=== PATIENT | female | born 1930 | race Caucasian/White ===

== ENCOUNTER 2016-08-21 19:09 | Inpatient (IN) | payer MEDICARE, OTHER ==
[2016-08-21 20:42] LABS: HEMATOCRIT 41.5 % (35.0-45.0)
[2016-08-21 20:45] LABS: HEMOGLOBIN 14.5 gm/dL (11.7-16.1); MEAN CELL VOLUME 89.6 fl (81-100); MEAN CORPUSCULAR HEMOGLOBIN 31.2 pg (27.0-31.0); MEAN CORPUSCULAR HGB CONC 34.9 pg (28.0-36.0); PLATELET COUNT 200 Th/cmm (150-400); RED BLOOD COUNT 4.63 Mil/cmm (3.80-5.20); RED CELL DISTRIBUTION WIDTH 12.7 % (11.5-20.0)
[2016-08-21] MEDS ORDERED: Sodium Chloride 0.9% 1,000 ML IV SCH ×2 (20:45)
[2016-08-21 20:55] LABS: WHITE BLOOD COUNT 16.8 Th/cmm (4.8-10.8)
[2016-08-21 20:59] LABS: ALB/GLOB RATIO 0.9 (1.0-1.8); ALKALINE PHOSPHATASE 60 U/L (34-104); BILIRUBIN,TOTAL 0.5 mg/dL (0.3-1.0); BUN - UREA NITROGEN 13 mg/dL (7-25); BUN/CREATININE RATIO 18.6; CALCIUM SERUM 9.6 mg/dL (8.6-10.3); CARBON DIOXIDE 21.7 mEq/L (21.0-31.0); CHLORIDE 103 mEq/L (98-107); CREATININE - SERUM 0.7 mg/dL (0.6-1.2); GLUCOSE 115 mg/dL (70-105); POTASSIUM SERUM 3.7 mEq/L (3.5-5.1); SGOT 14 U/L (13-39); SGPT/ALT 6 U/L (7-52); SODIUM SERUM 135 mEq/L (136-145)
[2016-08-21] MEDS ORDERED: Levofloxacin 500mg/100mL 500 MG/100 ML BAG IV ONE ×2 (21:47→21:49)
[2016-08-21 22:28] LABS: TOTAL CELLS COUNTED 100
[2016-08-21 22:29] LABS: BAND NEUTROPHILE 6 % (0-10); BASOPHIL 0 % (0-3); EOSINOPHIL 0 % (0-5); NEUTROPHILS 81 % (40-80)
[2016-08-21 22:30] LABS: PLATELET ESTIMATE ADEQUATE (NORMAL); PLATELET MORPHOLOGY NORMAL (NORMAL)
[2016-08-21 22:46] LABS: URINE BILIRUBIN NEGATIVE (NEGATIVE); URINE BLOOD MODERATE (NEGATIVE); URINE COLOR YELLOW; URINE GLUCOSE (UA) NEGATIVE (NEGATIVE); URINE KETONE 40 mg/dL (NEGATIVE)
[2016-08-21 22:47] LABS: URINE PROTEIN NEGATIVE (NEGATIVE); URINE UROBILINOGEN 0.2 E.U./dL (0.2 - 1.0); URINE WBC >100 /hpf (0-5)
[2016-08-21 22:48] LABS: URINE BACTERIA MODERATE /hpf (NONE SEEN); URINE EPITHELIAL CELLS MODERATE /lpf (FEW)
--- NOTE | 2016-08-21 23:19 | ED Physician Chart ---
Chief Complaint/HPI - Patient Information Date Seen:: 08/21/16 Time Seen:: 21:40 Chief Complaint:: fever, cough History of Present Illness:: location: general quality: fever, cough severity: moderate duration: two days context: SNF patient with fever, mild cough, generalized weakness, no pain complaint. sent to ER by PCP for medical screening exam. on arrival pt is awake, alert, with tachycardia. heart rate 105-110. no vomiting, no diarrhea, no rash. no CP, no SOB. mod factors: none assoc s/s: none hx from medic Allergies:: Allergies Allergy/AdvReac Type Severity Reaction Status Date / Time No Known Allergies Allergy Verified 01/27/16 23:25 Vitals:: Vital Signs - 8 hr 08/21/16 08/21/16 08/21/16 19:29 20:59 21:35 Temp 102.1 F 101.0 F HR 99 101 107 RR 18 18 18 BP 126/73 106/72 110/74 O2 Sat % 99 Historian:: EMS Review:: Nurse's Note Reviewed, EMS run form Reviewed Review of Systems - Review of Systems General/Constitutional: Fever, Chills, No edema Skin: No rash Neck: No stiffness Cardio Vascular: No edema Pulmonary: Cough, No wheezing GI: No vomiting, No diarrhea Neurological: No seizure Past Medical History - Past Medical History Past Medical History: HTN, PUD/GERD, Other (anemia, osteoporosis, anxiety) Family History: None Social History: Non Smoker, No Alcohol, No Drug Use, Single, Care Facility Surgical History: None Psychiatricy History: Depression Medication: Reviewed Family Medical History - Family Member Mother History Unknown: Yes Physical Exam - Physical Examination General/Constitutional: Awake, Well-developed, well-nourished, Alert, No distress, GCS 15, Non-toxic appearing Head: Atraumatic Eyes: Lids, conjuctiva normal, PERRL, EOMI Skin: Nl inspection, No rash, No skin lesions, No ecchymosis, No lymphadenopathy ENMT: External ears, nose nl, Nasal exam nl, Lips, teeth, gums nl Neck: Nontender Respiratory: Nl effort/Exclusion, Clear to Auscultation, No Wheeze/Rhonchi/Rales Cardio Vascular: RRR, No murmur, gallop, rubs, NL S1 S2 GI: No tenderness/rebounding/guarding, Normal BS's, Nondistended : No CVA tenderness Extremities: No tenderness or effusion, Full ROM, normal strength in all extremities, No edema, Normal digits & nails Neuro/Psych: Normal sensory exam, Normal motor strength, Mood normal, Normal gait, No focal deficits Misc: normal gait, Normal back, No paraspinal tenderness Labs/Radiology/EKG Results - Lab Results Results: Laboratory Tests 08/21/16 08/21/16 08/21/16 20:10 20:10 20:10 WBC 16.8 H D RBC 4.63 Hgb 14.5 Hct 41.5 MCV 89.6 MCH 31.2 H MCHC Differential 34.9 RDW 12.7 Plt Count 200 MPV 9.0 Neutrophils % AUTOMOBILE LOCATOR Band Neutrophils % 6 Lymphocytes % AUTOMOBILE LOCATOR Monocytes % AUTOMOBILE LOCATOR Neutrophils (Manual) 81 H Lymphocytes 8 L Monocytes 5 Eosinophils 0 Basophils 0 Platelet Estimate ADEQUATE Platelet Morphology NORMAL RBC Morph Micro Appear NORMAL Sodium 135 L Potassium 3.7 Chloride 103 Carbon Dioxide 21.7 Anion Gap 14.0 BUN 13 Creatinine 0.7 Est GFR ( Amer) TNP Est GFR (Non-Af Amer) TNP BUN/Creatinine Ratio 18.6 Glucose 115 H Whole Bld Lactic Acid 1.12 Calcium 9.6 Total Bilirubin 0.5 AST 14 ALT 6 L Alkaline Phosphatase 60 Total Protein 7.9 Albumin 3.8 Globulin 4.1 Albumin/Globulin Ratio 0.9 L Urine Source Urine Color Urine Clarity Urine pH Ur Specific [place] Urine Protein Urine Glucose (UA) Urine Ketones Urine Blood Urine Nitrate Urine Bilirubin Urine Urobilinogen Ur Leukocyte Esterase Urine RBC Urine WBC Ur Epithelial Cells Urine Bacteria 08/21/16 20:55 WBC RBC Hgb Hct MCV MCH MCHC Differential RDW Plt Count MPV Neutrophils % Band Neutrophils % Lymphocytes % Monocytes % Neutrophils (Manual) Lymphocytes Monocytes Eosinophils Basophils Platelet Estimate Platelet Morphology RBC Morph Micro Appear Sodium Potassium Chloride Carbon Dioxide Anion Gap BUN Creatinine Est GFR ( Amer) Est GFR (Non-Af Amer) BUN/Creatinine Ratio Glucose Whole Bld Lactic Acid Calcium Total Bilirubin AST ALT Alkaline Phosphatase Total Protein Albumin Globulin Albumin/Globulin Ratio Urine Source CATH Urine Color YELLOW Urine Clarity HAZY Urine pH 7.0 Ur Specific [place] 1.020 Urine Protein NEGATIVE Urine Glucose (UA) NEGATIVE Urine Ketones 40 H Urine Blood MODERATE H Urine Nitrate POSITIVE H Urine Bilirubin NEGATIVE Urine Urobilinogen 0.2 Ur Leukocyte Esterase MODERATE H Urine RBC 2-5 Urine WBC >100 H Ur Epithelial Cells MODERATE Urine Bacteria MODERATE - EKG Interpretations Comments:: EKG nsr [address] depression, lateral leads ED Septic Shock - . Is Septic Shock (SBP<90, OR Lactate>4 mmol\L) present?: No - <6hrs of presentation: Vital Signs: Vital Signs - 8 hr 08/21/16 08/21/16 08/21/16 19:29 20:59 21:35 Temp 102.1 F 101.0 F HR 99 101 107 RR 18 18 18 BP 126/73 106/72 110/74 O2 Sat % 99 Reassessment (Disposition) - Reassessment Reassessment:: MDM: pt with pulmonary findings of reduced breath sounds left lower lobe, mild tachycardia, normal lactate. also with UTI findings and elevated WBC. consistent with early sepsis even though lactate normal and blood pressure systolic 107. improved after IV fluid bolus. ER course: initially with fever and mild relative tachycardia. pt given tylenol and IV fluid bolus with improvement in heart rate. pt given IV fluid bolus as if near sepsis even though she does not meet standard criteria. pt improved after bolus. currently pt stable, comfortable, normal vital signs with maintenance IV fluids running. pt has been given IV antibiotics for pneumonia and UTI. Reassessment Condition:: Improved - Diagnosis Diagnosis:: left lower lobe pneumonia urinary tract infection - Patient Disposition Discharge/Transfer:: Acute Care w/in this hosp Admitted to:: Med/Surg Admitting Medical Physician:: Katherine Zhao Time:: 23:35 Condition at Disposition:: Stable, Improved
[2016-08-21] MEDS ORDERED: Magnesium Hydroxide (MOM) 30 mL UDC PO PRN (23:55)
[2016-08-22] MEDS: D5-0.45NS 1,000 ML IV SCH ×2 (00:57→14:20)
[2016-08-22 02:33] VITALS: BP 110/55
[2016-08-22 07:59] LABS: MEAN CORPUSCULAR HEMOGLOBIN 31.7 pg (27.0-31.0); MEAN CORPUSCULAR HGB CONC 34.8 pg (28.0-36.0); MEAN PLATELET VOLUME 8.7 fl; PLATELET COUNT 172 Th/cmm (150-400); RED BLOOD COUNT 3.82 Mil/cmm (3.80-5.20); RED CELL DISTRIBUTION WIDTH 12.6 % (11.5-20.0)
[2016-08-22 08:07] LABS: ALKALINE PHOSPHATASE 45 U/L (34-104); ANION GAP 4.5 (7.0-16.0); BILIRUBIN,TOTAL 0.4 mg/dL (0.3-1.0); BUN - UREA NITROGEN 9 mg/dL (7-25); CALCIUM SERUM 8.7 mg/dL (8.6-10.3); CARBON DIOXIDE 24.6 mEq/L (21.0-31.0); CHLORIDE 110 mEq/L (98-107); CHOLESTEROL 98 mg/dL (<200); CREATININE - SERUM 0.6 mg/dL (0.6-1.2); GLUCOSE 122 mg/dL (70-105); POTASSIUM SERUM 3.1 mEq/L (3.5-5.1); SGOT 17 U/L (13-39); SGPT/ALT 7 U/L (7-52); SODIUM SERUM 136 mEq/L (136-145); TRIGLYCERIDES 36 mg/dL (<150)
[2016-08-22 08:45] LABS: WHITE BLOOD COUNT 12.5 Th/cmm (4.8-10.8)
[2016-08-22 08:46] LABS: HEMATOCRIT 34.7 % (35.0-45.0); HEMOGLOBIN 12.1 gm/dL (11.7-16.1)
[2016-08-22] MEDS: Multivitamin w/ Minerals Tab PO SCH (09:15)
[2016-08-22] MEDS: Pantoprazole 40 mg EC Tab PO SCH (09:15)
[2016-08-22] MEDS: Calcium Carb/Vit D 500 mg/200 U Tab PO SCH ×2 (09:15→17:39)
[2016-08-22] MEDS: Ferrous Sulfate 325 MG TAB PO SCH (09:15)
--- NOTE | 2016-08-22 09:54 | Diagnostic Imaging Report ---
CHEST X-RAY: AP view INDICATION: Cough COMPARISON: Chest x-ray 01/27/2016 FINDINGS: Chronic lung changes are seen with increased interstitial lung markings most pronounced within the lung bases. No focal consolidation pleural effusions. Heart size is normal. Degenerative changes of the spine are noted. IMPRESSION: Chronic lung changes with increased lung markings most pronounced within the lung bases. Note that infiltrate of the right lung base cannot be excluded. Clinical correlation is recommended.
[2016-08-22] MEDS ORDERED: Pneumococcal Vaccine 0.5 mL Vial IM ONE (10:00)
[2016-08-22 10:29] LABS: BAND NEUTROPHILE 10 % (0-10); EOSINOPHIL 1 % (0-5); NEUTROPHILS 76 % (40-80); PLATELET ESTIMATE ADEQUATE (NORMAL); PLATELET MORPHOLOGY NORMAL (NORMAL); TOTAL CELLS COUNTED 100
[2016-08-22] MEDS: KCL 20mEq/100mL Premix 20 MEQ/100 ML PIGGYBACK IV SCH ×2 (15:48→18:20)
[2016-08-22] MEDS: Levofloxacin 500mg/100mL 500 MG/100 ML BAG IV SCH (17:39)
--- NOTE | 2016-08-22 20:37 | History & Physical ---
HISTORY OF PRESENT ILLNESS: A female with history of generalized weakness, fever, cough, came from the long-term and the patient was admitted for tachycardia, infection and sepsis. ALLERGIES: The patient is allergic to no medications. REVIEW OF SYSTEMS: Noted earlier fever, chills and cough. PAST MEDICAL HISTORY: History of hypertension, peptic ulcer disease, anemia, osteoporosis, anxiety. FAMILY HISTORY: Unremarkable. PHYSICAL EXAMINATION: GENERAL: Well-developed, well-nourished female, not in acute distress. VITAL SIGNS: Stable. HEAD: Head is normal. LUNGS: Bilateral rhonchi. CARDIOVASCULAR SYSTEM: S1, S2 heard. ABDOMEN: Soft. Bowel sounds are heard. CENTRAL NERVOUS SYSTEM: Grossly normal. LABORATORY DATA: White count was 16.8, hemoglobin 14.5 indicating infection and EKG showed sinus tachycardia, minimal ST depression in the lateral leads. DIAGNOSES: Left lower lobe pneumonia, urinary tract infection, leukocytosis early sepsis. Rule out sepsis, history of osteoporosis, history of anxiety, history of peptic ulcer disease, history of hypertension. PLAN: The patient is being admitted. I will go ahead and call ____. I will give antibiotics and we will also call Dr. Gabino Hyde for ID consult. JOB# [id number]
--- NOTE | 2016-08-22 22:51 | Admit Criteria Form ---
Admit Criteria Forms - Admit Criteria Diagnosis: PNEUMONIA, COMMUNITY ACQUIRED Clinical Indications for Admission to Inpatient Care ( Place 'X' for any and all applicable criteria): Admission is indicated for ANY ONE of the following (1)(2)(3): [ ]I. Hypoxemia indicated by ANY ONE of the following: [ ]a) Oxygen saturation less than 90% while breathing room air [ ]b) PO2 less than 60 mm Hg (8.0 kPa) while breathing room air [ ]c) Chronic lung disease with significant deterioration from baseline oxygenation [ ]II. Appropriate diagnostic testing and treatment unavailable in outpatient or recovery facility (eg,testing or infection control measures unavailable(10) [ ]III. Moderate-risk or high-risk category patients (Pneumonia Severity Index (PSI) class IV or V, or CURB-65 score of 3 or greater). [ ]IV. Outpatient treatment failure as indicated by ANY ONE of the following(9) : [ ]a) Failure to respond to antibiotic (eg, resistant organism) [ ]b) Clinically significant adverse effects from medication (eg, vomiting) [ ]c) Complications of pneumonia (eg, empyema, bacteremia) [ ]d) Significant worsening of comorbid cond necessitating inpatient care (eg, chronic heart failure) [X ]V. Intermediate-risk category patients (eg, PSI class III or CURB-65 score 2) who do not improve with initial therapy and observation. [ ]. Immunocompromised patients (eg, AIDS, chronic steroid use) at moderate or high risk based on clinical evaluation. [ ]VII. Complicated pleural effusions (eg, exudative, loculated) [ ]VIII.Hemodynamic instability [ ] IX. Altered mental status that is severe or persistent. [ ]X. Dehydration that is severe or persistent. [ ]XI. Bacteremia [ ]XII. Respiratory finding (eg. tachypnea) that do not respond to outpatient or observation care treatment Extended stay beyond goal length of stay may be needed for (20) [ ]a) Unclear diagnosis [ ]b) Pleural disease [ ]c) Severe pneumonia or treatment failure (25 [ ]d) Respiratory failure (anticipate invasive or noninvasive ventilatory support) [ ]e) Abnormal serum electrolytes (serum Na concentration less than 135 mEq/L (mmol/L) (32)(33) [ ]f) Clinically significant comorbid illness (eg, heart failure, atrial fibrillation with rapid heart rate, alcohol withdrawal, renal insufficiency)(34)(35) [ ]g) Comorbid acute exacerbation of COPD(36) [ ]h) Concomitant diagnosis of malignancy that may be associated with malnutrition, immunologic impairment, or bronchial obstruction. [ ]i) Concomitant altered mental status [ ]j) Culture-identified Gram-negative or antibiotic-resistant organism (eg, Pseudomonas, methicillin-resistant Staphylococcus aureus)(30) [ ]k) Healthcare-associated pneumonia The original [facility] content created by [employer] has been revised. The portions of the content which have been revised are identified through the use of italic text or in bold, and [facility] has neither reviewed nor approved the modified material. All other unmodified content is copyright [facility]. Please see references footnoted in the original [facility] edition 2016 Admit Criteria Met?: Yes
[2016-08-23] MEDS: Ferrous Sulfate 325 MG TAB PO SCH (08:26)
[2016-08-23] MEDS: Calcium Carb/Vit D 500 mg/200 U Tab PO SCH ×2 (08:26→16:19)
[2016-08-23] MEDS: Pantoprazole 40 mg EC Tab PO SCH (08:26)
[2016-08-23] MEDS: Multivitamin w/ Minerals Tab PO SCH (08:26)
[2016-08-23] MEDS: D5-0.45NS 1,000 ML IV SCH ×2 (08:47→23:48)
--- NOTE | 2016-08-23 09:59 | General Progress Note ---
Objective - Results Result Diagrams: 08/22/16 07:35 08/22/16 07:35 Recent Labs: Laboratory Last Values WBC 12.5 Th/cmm (4.8-10.8) H D 08/22/16 07:35 RBC 3.82 Mil/cmm (3.80-5.20) 08/22/16 07:35 Hgb 12.1 gm/dL (11.7-16.1) D 08/22/16 07:35 Hct 34.7 % (35.0-45.0) L D 08/22/16 07:35 MCV 91.0 fl (81-100) 08/22/16 07:35 MCH 31.7 pg (27.0-31.0) H 08/22/16 07:35 MCHC Differential 34.8 pg (28.0-36.0) 08/22/16 07:35 RDW 12.6 % (11.5-20.0) 08/22/16 07:35 Plt Count 172 Th/cmm (150-400) 08/22/16 07:35 MPV 8.7 fl 08/22/16 07:35 Neutrophils % COMPUTATIONAL GENETICIST 08/21/16 20:10 Band Neutrophils % 10 % (0-10) 08/22/16 07:35 Lymphocytes % COMPUTATIONAL GENETICIST 08/21/16 20:10 Monocytes % COMPUTATIONAL GENETICIST 08/21/16 20:10 Neutrophils (Manual) 76 % (40-80) 08/22/16 07:35 Lymphocytes 9 % (20-50) L 08/22/16 07:35 Monocytes 4 % (2-10) 08/22/16 07:35 Eosinophils 1 % (0-5) 08/22/16 07:35 Basophils 0 % (0-3) 08/21/16 20:10 Platelet Estimate ADEQUATE (NORMAL) 08/22/16 07:35 Platelet Morphology NORMAL (NORMAL) 08/22/16 07:35 RBC Morph Micro Appear NORMAL (NORMAL) 08/22/16 07:35 Sodium 136 mEq/L (136-145) 08/22/16 07:35 Potassium 3.1 mEq/L (3.5-5.1) L 08/22/16 07:35 Chloride 110 mEq/L (98-107) H 08/22/16 07:35 Carbon Dioxide 24.6 mEq/L (21.0-31.0) 08/22/16 07:35 Anion Gap 4.5 (7.0-16.0) L 08/22/16 07:35 BUN 9 mg/dL (7-25) 08/22/16 07:35 Creatinine 0.6 mg/dL (0.6-1.2) 08/22/16 07:35 Est GFR ( Amer) TNP 08/22/16 07:35 Est GFR (Non-Af Amer) TNP 08/22/16 07:35 BUN/Creatinine Ratio 15.0 08/22/16 07:35 Glucose 122 mg/dL (70-105) H 08/22/16 07:35 Whole Bld Lactic Acid 1.12 mmol/L (0.60-2.00) 08/21/16 20:10 Calcium 8.7 mg/dL (8.6-10.3) 08/22/16 07:35 Total Bilirubin 0.4 mg/dL (0.3-1.0) 08/22/16 07:35 AST 17 U/L (13-39) 08/22/16 07:35 ALT 7 U/L (7-52) 08/22/16 07:35 Alkaline Phosphatase 45 U/L (34-104) 08/22/16 07:35 Total Protein 6.2 gm/dL (6.0-8.3) 08/22/16 07:35 Albumin 3.1 gm/dL (3.7-5.3) L 08/22/16 07:35 Globulin 3.1 gm/dL 08/22/16 07:35 Albumin/Globulin Ratio 1.0 (1.0-1.8) 08/22/16 07:35 Triglycerides 36 mg/dL (<150) 08/22/16 07:35 Cholesterol 98 mg/dL (<200) 08/22/16 07:35 LDL Cholesterol Direct 45 mg/dL (75-193) L 08/22/16 07:35 HDL Cholesterol 44 mg/dL (23-92) 08/22/16 07:35 TSH 2.05 uIU/ml (0.34-5.60) 08/22/16 07:35 Urine Source CATH 08/21/16 20:55 Urine Color YELLOW 08/21/16 20:55 Urine Clarity HAZY (CLEAR) 08/21/16 20:55 Urine pH 7.0 08/21/16 20:55 Ur Specific [place] 1.020 (1.005-1.030) 08/21/16 20:55 Urine Protein NEGATIVE mg/dL (NEGATIVE) 08/21/16 20:55 Urine Glucose (UA) NEGATIVE mg/dL (NEGATIVE) 08/21/16 20:55 Urine Ketones 40 mg/dL (NEGATIVE) H 08/21/16 20:55 Urine Blood MODERATE (NEGATIVE) H 08/21/16 20:55 Urine Nitrate POSITIVE (NEGATIVE) H 08/21/16 20:55 Urine Bilirubin NEGATIVE (NEGATIVE) 08/21/16 20:55 Urine Urobilinogen 0.2 E.U./dL (0.2 - 1.0) 08/21/16 20:55 Ur Leukocyte Esterase MODERATE (NEGATIVE) H 08/21/16 20:55 Urine RBC 2-5 /hpf (0-5) 08/21/16 20:55 Urine WBC >100 /hpf (0-5) H 08/21/16 20:55 Ur Epithelial Cells MODERATE /lpf (FEW) 08/21/16 20:55 Urine Bacteria MODERATE /hpf (NONE SEEN) 08/21/16 20:55 - Physical Exam Vitals and I&O: Vital Signs Temp 99 F 08/23/16 04:00 Pulse 86 08/23/16 08:26 Resp 18 08/23/16 04:00 BP 108/66 08/23/16 08:26 Pulse Ox 92 08/23/16 04:00 Intake & Output 08/22/16 08/23/16 08/23/16 18:59 06:59 18:59 Intake Total 5039.435 7484.667 Output Total 3150 Balance 1653.333 -1743.333 Intake: Intake, IV Amount 5912.697 6756.667 D5-0.45NS 1,000 ml @ 75 1000 1000 mls/hr IV .[id number] [facility] Rx #:[id number] KCL 20mEq/100mL Premix 20 100 meq In 100 ml @ 50 mls/ hr IV Q2H [facility] Rx#: [id number] Levofloxacin 500mg/100mL 93.333 6.667 500 mg In 100 ml @ 100 mls/hr IV Q24HR [facility] Rx#: [id number] Oral 460 400 Output: Urine 3150 Other: # Voids 1 # Bowel Movements 1 0 Active Medications: Current Medications Acetaminophen (Tylenol) 650 mg PO Q4HR PRN PRN Reason: Pain (Mild) Stop: 10/20/16 23:54 Aspirin (Ecotrin) 81 mg PO DAILY [facility] Stop: 10/21/16 08:59 Last Admin: 08/23/16 08:27 Dose: 81 mg Calcium/Vitamin D (Oscal W/Vitamin D) 1 tab PO BID [facility] Stop: 10/21/16 08:59 Last Admin: 08/23/16 08:26 Dose: 1 tab Docusate Sodium (Colace) 100 mg PO DAILY [facility] Stop: 10/21/16 08:59 Last Admin: 08/23/16 08:27 Dose: 100 mg Donepezil HCl (Aricept) 5 mg PO HS [facility] Stop: 10/21/16 20:59 Last Admin: 08/22/16 21:09 Dose: 5 mg Ferrous Sulfate (Iron) 325 mg PO DAILY [facility] Stop: 10/21/16 08:59 Last Admin: 08/23/16 08:26 Dose: 325 mg Dextrose/Sodium Chloride (D5-0.45ns) 1,000 mls @ 75 mls/hr IV .[id number] [facility] Stop: 10/20/16 23:53 Last Admin: 08/23/16 08:47 Dose: 75 mls/hr Levofloxacin (Levaquin Pb) 500 mg in 100 mls @ 100 mls/hr IV Q24HR [facility] Stop: 10/21/16 17:59 Last Infusion: 08/22/16 19:00 Dose: Infused Loratadine (Claritin) 10 mg PO DAILY PRN PRN Reason: Allergy Symptoms Stop: 10/20/16 23:54 Lorazepam (Ativan) 0.5 mg PO Q6HR PRN; Protocol PRN Reason: Anxiety Stop: 10/20/16 23:54 Magnesium Hydroxide (Milk Of Magnesia) 30 ml PO HS PRN PRN Reason: Constipation Stop: 10/20/16 23:54 Metoprolol Succinate (Toprol Xl) 25 mg PO DAILY [facility] Stop: 10/21/16 08:59 Last Admin: 08/23/16 08:26 Dose: 25 mg Nitroglycerin (Nitrostat) 0.4 mg SL Q5MIN PRN PRN Reason: Chest Pain Stop: 10/20/16 23:54 Pantoprazole Sodium (Protonix) 40 mg PO DAILY [facility] Stop: 10/21/16 08:59 Last Admin: 08/23/16 08:26 Dose: 40 mg Ropinirole HCl (Requip) 0.25 mg PO HS [facility] Stop: 10/21/16 20:59 Last Admin: 08/22/16 21:10 Dose: Not Given Trazodone HCl (Desyrel) 25 mg PO [facility] PRN Reason: Protocol Stop: 10/21/16 20:59 Last Admin: 08/22/16 21:08 Dose: 25 mg Vitamin D (Vitamin D) 400 iu PO DAILY [facility] Stop: 10/21/16 08:59 Last Admin: 08/23/16 08:26 Dose: 400 iu Assessment/Plan - Problem List Patient Problems: All Active Problems Anxiety (Acute) F41.9
--- NOTE | 2016-08-23 13:38 | Diagnostic Imaging Report ---
Renal ultrasound HISTORY: Pyelonephritis COMPARISON: None Technique: Sonography of the kidneys and urinary bladder was performed in multiple planes. FINDINGS: Barclay catheter is seen within moderately distended urinary bladder. The right kidney measures 10.1 x 4 cm. The left kidney measures 10.0 x 4.4 cm. No evidence of focal lesions or hydronephrosis. IMPRESSION: No evidence of hydronephrosis Barclay catheter within moderately distended urinary bladder, clinical correlation recommended.
[2016-08-23] MEDS: Levofloxacin 500mg/100mL 500 MG/100 ML BAG IV SCH (17:46)
--- NOTE | 2016-08-23 19:12 | Consultation ---
INFECTIOUS DISEASE CONSULTATION REFERRING PHYSICIAN: Dr. Zhao. REASON FOR CONSULTATION: Sepsis and pneumonia. HISTORY OF PRESENT ILLNESS: The patient is an 86-year-old female with a past medical history of hypertension, peptic ulcer disease, anemia, osteoporosis, anxiety disorder, dementia, who was brought in from nursing facility for mild cough and fever with chills and generalized weakness. The patient is a poor historian. On initial evaluation, the patient's temperature was 102.1 degree Fahrenheit and WBC count was 16,800. Sepsis workup was performed and urinalysis showed pyuria and bacteriuria. Chest x-ray showed some chronic changes. The patient was started on Levaquin. The patient is improving. Currently, the patient is doing better. ID consult was called for further antibiotic management. PAST MEDICAL HISTORY: Hypertension, peptic ulcer disease, anemia, osteoporosis, and anxiety disorder. ALLERGIES: NKDA. MEDICATIONS: As per medication reconciliation sheet. Antibiotic carrasquillo, the patient is receiving Levaquin. FAMILY HISTORY: Not available. SOCIAL HISTORY: The patient lives at nursing facility. No history of smoking, alcohol, or drug use. PSYCHIATRIC HISTORY: Depression and anxiety disorder. REVIEW OF SYSTEMS: GENERAL/CONSTITUTIONAL: The patient has fever and chills associated with generalized weakness. No weight loss. HEENT: The patient has no diplopia, no photophobia, no sore throat, and no congestion. RESPIRATORY: The patient has occasional cough, no shortness of breath. CARDIOVASCULAR: No chest pain or palpitation. GASTROINTESTINAL: No nausea, no vomiting, no diarrhea, and no constipation. GENITOURINARY: No dysuria. NEUROLOGIC: No headache, no dizziness, no focal weakness, and no seizures. PHYSICAL EXAMINATION: VITAL SIGNS: Current vital signs show temperature is 98.8 degrees Fahrenheit, pulse 97, respirations 18, and blood pressure 113/70. GENERAL: The patient is comfortable lying in the bed, not in acute distress. HEENT: Head is normocephalic and atraumatic. Oral cavity moist, pink tongue. Eyes: Pallor is present, no icterus. PERRLA. EOMI. NECK: Supple. No JVD. No carotid bruit. Trachea in midline. CHEST: Bilateral vesicular breath sounds. Occasional crackles. No wheezing. No rales. HEART: S1 and S2 within normal limits. Regular rhythm. No murmur and no gallop. ABDOMEN: Soft, nontender, and nondistended. Bowel sounds present. No guarding. No rebound. GENITOURINARY: No dysuria. EXTREMITIES: No cyanosis, no clubbing, and no edema. NEUROLOGIC: Alert and awake. Communicates well. Normal gait. LABORATORY DATA: Current lab shows WBC count is 12,500, hemoglobin 12.1, hematocrit 34.7, platelets are 172,000, and neutrophil 76%. Sodium is 136, potassium 3.1, chloride 110, bicarb is 24.6, BUN is 9, creatinine 0.6, and glucose is 122. Urinalysis showed nitrite positive, moderate leukocyte esterase and WBC more than 100, and bacteria moderate. Blood culture 2 sets are negative. IMPRESSION: 1. Sepsis, fever improved. Leukocytosis is improving. 2. Urinary tract infection, pyelonephritis. 3. Dementia. 4. Anxiety disorder. 5. Depression. 6. History of hypertension. 7. Peptic ulcer disease. 8. Osteoporosis. RECOMMENDATIONS: We will continue Levaquin at this time, check the urine culture, and go from there. Check renal ultrasound. Thank you Dr. Zhao for involving me in taking care of this patient. JOB# [id number] CRISTOPHER
--- NOTE | 2016-08-24 08:35 | General Progress Note ---
Objective - Results Result Diagrams: 08/22/16 07:35 08/22/16 07:35 Recent Labs: Laboratory Last Values WBC 12.5 Th/cmm (4.8-10.8) H D 08/22/16 07:35 RBC 3.82 Mil/cmm (3.80-5.20) 08/22/16 07:35 Hgb 12.1 gm/dL (11.7-16.1) D 08/22/16 07:35 Hct 34.7 % (35.0-45.0) L D 08/22/16 07:35 MCV 91.0 fl (81-100) 08/22/16 07:35 MCH 31.7 pg (27.0-31.0) H 08/22/16 07:35 MCHC Differential 34.8 pg (28.0-36.0) 08/22/16 07:35 RDW 12.6 % (11.5-20.0) 08/22/16 07:35 Plt Count 172 Th/cmm (150-400) 08/22/16 07:35 MPV 8.7 fl 08/22/16 07:35 Neutrophils % [employer] 08/21/16 20:10 Band Neutrophils % 10 % (0-10) 08/22/16 07:35 Lymphocytes % [employer] 08/21/16 20:10 Monocytes % [employer] 08/21/16 20:10 Neutrophils (Manual) 76 % (40-80) 08/22/16 07:35 Lymphocytes 9 % (20-50) L 08/22/16 07:35 Monocytes 4 % (2-10) 08/22/16 07:35 Eosinophils 1 % (0-5) 08/22/16 07:35 Basophils 0 % (0-3) 08/21/16 20:10 Platelet Estimate ADEQUATE (NORMAL) 08/22/16 07:35 Platelet Morphology NORMAL (NORMAL) 08/22/16 07:35 RBC Morph Micro Appear NORMAL (NORMAL) 08/22/16 07:35 Sodium 136 mEq/L (136-145) 08/22/16 07:35 Potassium 3.1 mEq/L (3.5-5.1) L 08/22/16 07:35 Chloride 110 mEq/L (98-107) H 08/22/16 07:35 Carbon Dioxide 24.6 mEq/L (21.0-31.0) 08/22/16 07:35 Anion Gap 4.5 (7.0-16.0) L 08/22/16 07:35 BUN 9 mg/dL (7-25) 08/22/16 07:35 Creatinine 0.6 mg/dL (0.6-1.2) 08/22/16 07:35 Est GFR ( Amer) TNP 08/22/16 07:35 Est GFR (Non-Af Amer) TNP 08/22/16 07:35 BUN/Creatinine Ratio 15.0 08/22/16 07:35 Glucose 122 mg/dL (70-105) H 08/22/16 07:35 Whole Bld Lactic Acid 1.12 mmol/L (0.60-2.00) 08/21/16 20:10 Calcium 8.7 mg/dL (8.6-10.3) 08/22/16 07:35 Total Bilirubin 0.4 mg/dL (0.3-1.0) 08/22/16 07:35 AST 17 U/L (13-39) 08/22/16 07:35 ALT 7 U/L (7-52) 08/22/16 07:35 Alkaline Phosphatase 45 U/L (34-104) 08/22/16 07:35 Total Protein 6.2 gm/dL (6.0-8.3) 08/22/16 07:35 Albumin 3.1 gm/dL (3.7-5.3) L 08/22/16 07:35 Globulin 3.1 gm/dL 08/22/16 07:35 Albumin/Globulin Ratio 1.0 (1.0-1.8) 08/22/16 07:35 Triglycerides 36 mg/dL (<150) 08/22/16 07:35 Cholesterol 98 mg/dL (<200) 08/22/16 07:35 LDL Cholesterol Direct 45 mg/dL (75-193) L 08/22/16 07:35 HDL Cholesterol 44 mg/dL (23-92) 08/22/16 07:35 TSH 2.05 uIU/ml (0.34-5.60) 08/22/16 07:35 Urine Source CATH 08/21/16 20:55 Urine Color YELLOW 08/21/16 20:55 Urine Clarity HAZY (CLEAR) 08/21/16 20:55 Urine pH 7.0 08/21/16 20:55 Ur Specific [place] 1.020 (1.005-1.030) 08/21/16 20:55 Urine Protein NEGATIVE mg/dL (NEGATIVE) 08/21/16 20:55 Urine Glucose (UA) NEGATIVE mg/dL (NEGATIVE) 08/21/16 20:55 Urine Ketones 40 mg/dL (NEGATIVE) H 08/21/16 20:55 Urine Blood MODERATE (NEGATIVE) H 08/21/16 20:55 Urine Nitrate POSITIVE (NEGATIVE) H 08/21/16 20:55 Urine Bilirubin NEGATIVE (NEGATIVE) 08/21/16 20:55 Urine Urobilinogen 0.2 E.U./dL (0.2 - 1.0) 08/21/16 20:55 Ur Leukocyte Esterase MODERATE (NEGATIVE) H 08/21/16 20:55 Urine RBC 2-5 /hpf (0-5) 08/21/16 20:55 Urine WBC >100 /hpf (0-5) H 08/21/16 20:55 Ur Epithelial Cells MODERATE /lpf (FEW) 08/21/16 20:55 Urine Bacteria MODERATE /hpf (NONE SEEN) 08/21/16 20:55 - Physical Exam Vitals and I&O: Vital Signs Temp 98.6 F 08/23/16 20:00 Pulse 82 08/23/16 20:00 Resp 18 08/23/16 20:00 BP 108/55 08/23/16 20:00 Pulse Ox 100 08/23/16 20:00 Intake & Output 08/23/16 08/24/16 08/24/16 18:59 06:59 18:59 Intake Total 240 1000 150 Output Total 500 1100 Balance -260 1000 -950 Intake: Intake, IV Amount 1000 D5-0.45NS 1,000 ml @ 75 1000 mls/hr IV .[id number] [facility] Rx #:[id number] Oral 240 150 Output: Urine 500 1100 Other: # Bowel Movements 1 0 Active Medications: Current Medications Acetaminophen (Tylenol) 650 mg PO Q4HR PRN PRN Reason: Pain (Mild) Stop: 10/20/16 23:54 Aspirin (Ecotrin) 81 mg PO DAILY [facility] Stop: 10/21/16 08:59 Last Admin: 08/23/16 08:27 Dose: 81 mg Calcium/Vitamin D (Oscal W/Vitamin D) 1 tab PO BID [facility] Stop: 10/21/16 08:59 Last Admin: 08/23/16 16:19 Dose: 1 tab Docusate Sodium (Colace) 100 mg PO DAILY [facility] Stop: 10/21/16 08:59 Last Admin: 08/23/16 08:27 Dose: 100 mg Donepezil HCl (Aricept) 5 mg PO HS [facility] Stop: 10/21/16 20:59 Last Admin: 08/23/16 20:57 Dose: 5 mg Ferrous Sulfate (Iron) 325 mg PO DAILY [facility] Stop: 10/21/16 08:59 Last Admin: 08/23/16 08:26 Dose: 325 mg Dextrose/Sodium Chloride (D5-0.45ns) 1,000 mls @ 75 mls/hr IV .[id number] [facility] Stop: 10/20/16 23:53 Last Admin: 08/23/16 23:48 Dose: 75 mls/hr Levofloxacin (Levaquin Pb) 500 mg in 100 mls @ 100 mls/hr IV Q24HR [facility] Stop: 10/21/16 17:59 Last Admin: 08/23/16 17:46 Dose: 100 mls/hr Loratadine (Claritin) 10 mg PO DAILY PRN PRN Reason: Allergy Symptoms Stop: 10/20/16 23:54 Lorazepam (Ativan) 0.5 mg PO Q6HR PRN; Protocol PRN Reason: Anxiety Stop: 10/20/16 23:54 Magnesium Hydroxide (Milk Of Magnesia) 30 ml PO HS PRN PRN Reason: Constipation Stop: 10/20/16 23:54 Metoprolol Succinate (Toprol Xl) 25 mg PO DAILY [facility] Stop: 10/21/16 08:59 Last Admin: 08/23/16 08:26 Dose: 25 mg Nitroglycerin (Nitrostat) 0.4 mg SL Q5MIN PRN PRN Reason: Chest Pain Stop: 10/20/16 23:54 Pantoprazole Sodium (Protonix) 40 mg PO DAILY [facility] Stop: 10/21/16 08:59 Last Admin: 08/23/16 08:26 Dose: 40 mg Ropinirole HCl (Requip) 0.25 mg PO HS [facility] Stop: 10/21/16 20:59 Last Admin: 08/23/16 23:46 Dose: Not Given Trazodone HCl (Desyrel) 25 mg PO [facility] PRN Reason: Protocol Stop: 10/21/16 20:59 Last Admin: 08/23/16 20:57 Dose: 25 mg Vitamin D (Vitamin D) 400 iu PO DAILY [facility] Stop: 10/21/16 08:59 Last Admin: 08/23/16 08:26 Dose: 400 iu Assessment/Plan - Problem List Patient Problems: All Active Problems Anxiety (Acute) F41.9
[2016-08-24] MEDS: Multivitamin w/ Minerals Tab PO SCH (09:14)
[2016-08-24] MEDS: Ferrous Sulfate 325 MG TAB PO SCH (09:14)
[2016-08-24] MEDS: Pantoprazole 40 mg EC Tab PO SCH (09:14)
[2016-08-24] MEDS: Calcium Carb/Vit D 500 mg/200 U Tab PO SCH ×2 (09:14→17:08)
[2016-08-24] MEDS: D5-0.45NS 1,000 ML IV SCH (17:08)
[2016-08-24] MEDS: Levofloxacin 500mg/100mL 500 MG/100 ML BAG IV SCH (17:22)
--- NOTE | 2016-09-04 10:57 | Discharge Summary ---
HOSPITAL COURSE: The patient came from a [facility], brought into the ER for chief complaint of fever, cough. The patient was admitted to the Medical Floor due to infection, sepsis and pneumonia. The patient was consulted with ID, Dr. Gabino Hyed. A series of antibiotics given. PAST MEDICAL HISTORY: Hypertension, PUD, anemia, osteoporosis and anxiety. PHYSICAL EXAMINATION: GENERAL: Well-developed, well-nourished female, not in any distress. VITAL SIGNS: Stable. HEAD: Atraumatic, normocephalic. LUNGS: Still some bilateral fine rhonchi. HEART: S1 and S2 heard. ABDOMEN: Soft and nontender. NEUROLOGIC: CN II through XII are intact. DISCHARGE PLAN: The patient will be going back to [facility] for continuity of care. JOB# [id number]
== END 2016-08-24 21:45 | DRG 871 ==
LOC: ER 19:09 → TELE 23:30
PROVIDERS: ADMIT Internal Medicine; ATTEND Internal Medicine
DX: A41.9 Sepsis, unspecified organism (principal); J18.9 Pneumonia, unspecified organism; N12 Tubulo-interstitial nephritis, not specified as acute or chronic; M81.0 Age-related osteoporosis without current pathological fracture; F41.9 Anxiety disorder, unspecified; K27.9 Peptic ulcer, site unspecified, unspecified as acute or chronic, without hemorrhage or perforation; I10 Essential (primary) hypertension; F32.9 Major depressive disorder, single episode, unspecified; D64.9 Anemia, unspecified
CPT/HCPCS: 36415-UA; 71010-TC; 76770-TC; 80053-TC; 80061-TC; 81001-TC; 83605; 84443-TC; 85007-TC; 85027-TC; 87086-90; 93005; J1956; J3480; Z7610